=== PATIENT | male | born 1965 | race Caucasian/White ===

== ENCOUNTER 2017-12-20 19:07 | Emergency (ER) | payer SELFPAY | END 2017-12-20 20:08 | disposition home or self-care (01) | LOC: SCSER 19:07 | DX: J30.9 Allergic rhinitis, unspecified (principal); E11.65 Type 2 diabetes mellitus with hyperglycemia; Z87.891 Personal history of nicotine dependence | CPT/HCPCS: 36416; 99284 ==

== ENCOUNTER 2021-03-04 14:13 | Emergency (ER) | payer SELFPAY ==
[2021-03-04 15:19] LABS: #Eosinphils 0.3 thou/uL (0.0-0.7); #Lymphocytes 1.4 thou/uL (1.20-3.40); #Monocytes 0.5 thou/uL (0.11-0.59); #Neutrophils 3.2 thou/uL (1.40-6.50); %Basophils 0.5 % (0.0-1.0); %Eosinophils 4.7 % (0.0-10.0); %Lymphocytes 25.8 % (21.0-51.0); %Monocytes 9.3 % (0.0-10.0); %Neutrophils 59.7 % (42.0-75.0); Hemoglobin 14.7 g/dL (14.0-18.0); Mean Corpuscular HGB CONC 34.4 g/dL (32.0-36.0); Mean Corpuscular Hemoglobin 32.6 pg (27.0-31.0); Mean Corpuscular Volume 94.9 fL (78.0-98.0); Mean Platelet Volume 6.6 fL (7.4-10.4); Platelet Count 180 thou/uL (130-400); RBC Distribution Width 12.1 % (11.5-14.5); Red Blood Cell (RBC) Count 4.52 mill/uL (4.70-6.10); White Blood Cell (WBC) Count 5.4 thou/uL (4.8-10.8)
[2021-03-04 15:41] LABS: ALT (SGPT) 15 U/L (8-55); AST (SGOT) 13 U/L (5-34); Albumin 3.7 g/dL (3.5-5.0); Alkaline Phosphatase 117 U/L (40-110); Anion Gap 18 mmol/L (10-20); BUN (Urea Nitrogen) 15 mg/dL (8.4-25.7); Bilirubin, Total 0.3 mg/dL (0.2-1.2); Calc. Creatinine Clearance 0 mL/min (70-130); Calcium 9.9 mg/dL (7.8-10.44); Carbon Dioxide 21 mmol/L (22-29); Chloride 100 mmol/L (98-107); Globulin 4.9 g/dL (2.4-3.5); Glucose 460 mg/dL (70-105); Potassium 4.5 mmol/L (3.5-5.1); Protein, Total 8.6 g/dL (6.0-8.3); Sodium 134 mmol/L (136-145)
[2021-03-04] MEDS ORDERED: Insulin Regular 300 UNITS/3 ML VIAL ONE (18:01)
[2021-03-04 18:19] LABS: Actual Bicarbonate (HCO3v) 24 mEq/L (22-28); Analyzer IN Cardio ER; Base Excess -1.9 mEq/L (-2.0 to +3.0); Calcium, Ionized (venous) 1.18 mmol/L (1.16-1.32); Chloride (VBG) 100 mmol/L (98-106); Potassium (VBG) 4.35 mmol/L (3.70-5.30); Sodium 137.5 mmol/L (133-146); pH (venous) 7.36 (7.32-7.43)
[2021-03-04 18:23] LABS: Bilirubin Negative (Negative); Blood, Urine Negative (Negative); Glucose, Urine (Dipstick) >=1000 mg/dL (Negative); Ketone, Urine 15 mg/dL (Negative); Leukocyte Negative (Negative); Nitrite Negative (Negative); Protein, Urine (Dipstick) Negative (Neg-Trace); Specific Gravity, Urine 1.015 (1.005-1.030); Urobilinogen 0.2 mg/dL (Less than 2)
[2021-03-04 18:27] LABS: Bacteria/HPF None Seen HPF (None Seen); RBC/HPF 0-3 HPF (0-3); Squamous Epithelial None Seen HPF (0-3); WBC/HPF 0-3 HPF (0-3)
[2021-03-04 18:28] LABS: Clarity Clear (Clear)
[2021-03-04 19:21] LABS: Hemoglobin A1c Greater than 14.0 % (4.0-6.0)
== END 2021-03-04 20:42 | disposition home or self-care (01) ==
LOC: ERS 14:13
DX: E11.65 Type 2 diabetes mellitus with hyperglycemia (principal); E78.00 Pure hypercholesterolemia, unspecified; Z87.891 Personal history of nicotine dependence
CPT/HCPCS: 36415; 36416; 80053; 81003; 82010; 82805; 83036; 85025; 96374; J1815

== ENCOUNTER 2021-10-04 14:09 | Emergency (ER) | payer SELFPAY ==
[2021-10-04 15:01] LABS: #Eosinphils 0.1 thou/uL (0.0-0.7); #Monocytes 0.5 thou/uL (0.11-0.59); #Neutrophils 4.9 thou/uL (1.40-6.50); %Basophils 0.5 % (0.0-1.0); %Eosinophils 0.9 % (0.0-10.0); %Lymphocytes 15.4 % (21.0-51.0); %Monocytes 8.1 % (0.0-10.0); %Neutrophils 75.1 % (42.0-75.0); Hemoglobin 10.4 g/dL (14.0-18.0); Mean Corpuscular HGB CONC 34.1 g/dL (32.0-36.0); Mean Corpuscular Hemoglobin 32.9 pg (27.0-31.0); Mean Corpuscular Volume 96.7 fL (78.0-98.0); Mean Platelet Volume 6.1 fL (7.4-10.4); Platelet Count 239 thou/uL (130-400); RBC Distribution Width 12.6 % (11.5-14.5); Red Blood Cell (RBC) Count 3.14 mill/uL (4.70-6.10); White Blood Cell (WBC) Count 6.6 thou/uL (4.8-10.8)
[2021-10-04 15:28] LABS: ALT (SGPT) 16 U/L (8-55); AST (SGOT) 14 U/L (5-34); Albumin 3.4 g/dL (3.5-5.0); Alkaline Phosphatase 89 U/L (40-110); Anion Gap 14 mmol/L (10-20); BUN (Urea Nitrogen) 34 mg/dL (8.4-25.7); Bilirubin, Total 0.3 mg/dL (0.2-1.2); Calc. Creatinine Clearance 0 mL/min (70-130); Calcium 9.1 mg/dL (7.8-10.44); Carbon Dioxide 23 mmol/L (22-29); Chloride 104 mmol/L (98-107); Globulin 3.6 g/dL (2.4-3.5); Glucose 272 mg/dL (70-105); Potassium 4.8 mmol/L (3.5-5.1); Sodium 136 mmol/L (136-145)
[2021-10-05 17:21] LABS: SARS-CoV-2 PCR by NAA DETECTED (NotDetected)
== END 2021-10-04 19:00 | disposition home or self-care (01) ==
LOC: ERS 14:09
DX: D64.9 Anemia, unspecified (principal); R04.0 Epistaxis; E11.9 Type 2 diabetes mellitus without complications; E78.00 Pure hypercholesterolemia, unspecified; Z87.891 Personal history of nicotine dependence
CPT/HCPCS: 36415; 80053; 85025; 93005; U0003; U0005

== ENCOUNTER 2022-10-21 12:21 | Emergency (ER) | payer SELFPAY ==
[2022-10-21] MEDS ORDERED: Ondansetron PF 4 MG/2 ML Vial ONE (13:35)
[2022-10-21 14:16] LABS: #Eosinphils 1.7 thou/uL (0.0-0.7); #Lymphocytes 1.9 thou/uL (1.20-3.40); #Monocytes 0.8 thou/uL (0.11-0.59); #Neutrophils 9.5 thou/uL (1.40-6.50); %Basophils 0.3 % (0.0-1.0); %Lymphocytes 13.4 % (21.0-51.0); %Neutrophils 68.3 % (42.0-75.0); Hemoglobin 16.1 g/dL (14.0-18.0); Mean Corpuscular HGB CONC 33.9 g/dL (32.0-36.0); Mean Corpuscular Hemoglobin 33.8 pg (27.0-31.0); Mean Corpuscular Volume 99.7 fl (78.0-98.0); Mean Platelet Volume 6.4 fL (7.4-10.4); Platelet Count 248 10x3/uL (130-400); RBC Distribution Width 12.6 % (11.5-14.5); Red Blood Cell (RBC) Count 4.77 mill/uL (4.70-6.10); White Blood Cell (WBC) Count 13.9 10x3/uL (4.8-10.8)
[2022-10-21 14:35] LABS: ALT (SGPT) 43 U/L (8-55); AST (SGOT) 27 U/L (5-34); Albumin 3.7 g/dL (3.5-5.0); Alkaline Phosphatase 117 U/L (40-110); Anion Gap 17 mmol/L (10-20); BUN (Urea Nitrogen) 23 mg/dL (8.4-25.7); Bilirubin, Total 0.4 mg/dL (0.2-1.2); CK (CPK) 56 U/L (30-200); Calc. Creatinine Clearance 0 mL/min (70-130); Calcium 9.5 mg/dL (7.8-10.44); Carbon Dioxide 19 mmol/L (22-29); Chloride 105 mmol/L (98-107); Estimated GFR 69; Globulin 4.5 g/dL (2.4-3.5); Glucose 136 mg/dL (70-105); Lipase 14 U/L (8-78); Potassium 4.9 mmol/L (3.5-5.1); Protein, Total 8.2 g/dL (6.0-8.3); Sodium 136 mmol/L (136-145)
== END 2022-10-21 15:26 | disposition home or self-care (01) ==
LOC: ERS 12:21
DX: R19.7 Diarrhea, unspecified (principal); D72.829 Elevated white blood cell count, unspecified; E11.9 Type 2 diabetes mellitus without complications; E78.5 Hyperlipidemia, unspecified; Z79.4 Long term (current) use of insulin
CPT/HCPCS: 80053; 82550; 83690; 85025; 96361; 96374; J2405